=== PATIENT | male | born 1980 | race Caucasian/White ===

== ENCOUNTER 2016-04-19 20:15 | Emergency (ER) | payer OTHER ==
[~2016-04-19] VITALS: Ht 185.4 cm; Wt 102.1 kg
[2016-04-19 20:30] VITALS: BP 137/81
--- NOTE | 2016-04-19 20:50 | NUR ---
PT TAKEN TO BED 2
--- NOTE | 2016-04-19 20:55 | NUR ---
35 Y/O HERE W/C/O R UPPER GUMS SWELLING, FEVER AND PAIN X 1 DAY. ER AWARED, NO S/S OF DISTRESS NOTED AT THIS TIME.
[2016-04-19 21:11] VITALS: BP 127/83
--- NOTE | 2016-04-19 21:11 | NUR ---
Dr. Delgado evaluating patient
--- NOTE | 2016-04-19 21:11 | NUR ---
Patient discharged BY DR MACARIO with v/s stable. Written and verbal after care instructions given and explained. Patient alert, oriented and verbalized understanding of instructions. Ambulatory with steady gait. All questions addressed prior to discharge. ID band removed. Patient advised to follow up with PMD OR RETURN TO ER IF CONDITION WORSENS. Rx of NAPROSYN AND PENICILLIN VK given. Patient educated on indication of medication including possible reaction and side effects. Opportunity to ask questions provided and answered.
== END 2016-04-19 21:11 | disposition home or self-care (01) ==
LOC: MED 20:15
DX: K04.7 Periapical abscess without sinus (principal)